=== PATIENT | male | born 1965 | race Caucasian/White ===

== ENCOUNTER 2022-08-08 11:45 | Day surgery (SDC) | payer OTHER ==
[2022-08-07 11:14] LABS: Absolute Lymphocytes (CBC) 2.5 K/uL (0.7-4.9); Hematocrit 40.8 % (39.6-49.0); Lymphocytes % 33.8 % (15.3-44.8); MCV 89.7 fL (80-100); MPV 7.5 fL (7.6-11.3); RBC Red Blood Cell Count 4.54 M/uL (4.33-5.43)
[2022-08-07 11:23] LABS: Protime INR 0.86
[2022-08-07 11:26] LABS: Potassium 3.9 mEq/L (3.5-5.1)
--- NOTE | 2022-08-07 12:00 | RAD REPORT ---
EXAM DESCRIPTION: RAD - Chest Pa And Lat (2 Views) - 08/07/2022 11:02 am CLINICAL HISTORY: Pre op pending heart catheterization. Hypertension COMPARISON: CHEST PA AND LAT 2 VIEW dated 07/24/2011 TECHNIQUE: PA and lateral views of the chest were obtained. FINDINGS: The lungs are clear. Heart size is normal and central vasculature is within normal limits. No pleural effusion or pneumothorax seen. No acute bony finding noted. IMPRESSION: No acute cardiopulmonary process.
[~2022-08-08 11:45] MED LIST: FENTANYL CITR 100 MCG/2 ML ONE; HEPA 1000U/500MLS 2,000 UNIT/1,000 ML BAG IV ONE; HEPARIN 10,000 UNIT/10 ML VIAL IV ONE; HEPARIN 5000 UNIT/ML 1 ML VIAL ONE; LIDOCAINE 1% 20 ML MDV ONE; MIDAZOLAM HCL 2 MG/2 ML INJ ONE; NITROGLYCERIN 100 MCG/ML SYR (for cath lab use only) IV ONE; VERAPAMIL HCL 10 MG/4 ML VIAL IV ONE
[2022-08-08 12:40] VITALS: TEMP 97.1
[2022-08-08] MEDS ORDERED: NA CHLORIDE 0.9% 500 ML ONE (12:50)
[2022-08-08] MEDS ORDERED: ATROPINE SULF 1 MG/10 ML SYR IV ONE (13:56)
[2022-08-08 16:38] VITALS: BP 121/78; O2SAT 99
--- NOTE | 2022-08-08 19:12 | EKG ---
Test Date: 2022-08-07 Test Time: 10:35:14 Fundraising Sale Representative: JONH MEASUREMENT RESULTS: Intervals: Rate: 56 MT: 178 QRSD: 102 QT: 412 QTc: 397 [place]: P: 65 MT: 178 QRS: 59 T: 65 INTERPRETIVE STATEMENTS: Sinus bradycardia Otherwise normal ECG Compared to ECG 05/06/2015 09:36:24 Left ventricular hypertrophy no longer present Early repolarization no longer present Electronically Signed On 08-08-22 19:10:19 CDT by Kalpesh Figueroa
== END 2022-08-08 17:06 | disposition home or self-care (01) ==
LOC: CCL 11:45
PROVIDERS: ATTEND Internal Medicine
DX: I20.0 Unstable angina (principal); I10 Essential (primary) hypertension; E78.2 Mixed hyperlipidemia; Z79.899 Other long term (current) drug therapy
CPT/HCPCS: 36415; 71046; 76937; 80048; 85025; 85610; 85730; 93005; 93458; C1893; J0461; J1644; J2001; J2250; J3010; J7040; Q9966